=== PATIENT | female | born 2000 | race African-American/Black ===

== ENCOUNTER 2021-03-08 20:05 | Emergency (ER) | payer OTHER ==
[~2021-03-08] VITALS: Ht 170.2 cm; Wt 79.4 kg
[2021-03-08 20:52] LABS: HEMATOCRIT 39.6 % (37.0-47.0); HEMOGLOBIN 13.9 gm/dL (12.0-15.0); MCH 32.5 pg (26.0-34.0); MCHC 35.2 g/dL (28.0-37.0); MCV 92.2 fL (80.0-100.0); RBC 4.29 mil/uL (4.20-5.00); RDW 13.3 % (10.5-14.5); WBC 6.9 thou/uL (4.0-11.0)
[2021-03-08 20:59] LABS: CALCIUM 8.7 mg/dL (8.5-10.1); CREATININE 0.8 mg/dL (0.6-1.0); POTASSIUM 3.7 mmol/L (3.5-5.1)
[2021-03-08 21:05] LABS: ALBUMIN 3.9 g/dL (3.4-5.0); TOTAL BILIRUBIN 0.2 mg/dL (0.2-1.0); TOTAL PROTEIN 7.2 g/dL (6.4-8.2)
[2021-03-08 23:30] VITALS: BP 95/42
--- NOTE | 2021-03-09 07:54 | EKG ---
[place] [address] [facility] [facility] [place] [address] ELECTROCARDIOGRAM REPORT Name: GILDA PINEDO Room #: HOANG Luna#: [id number] Admission: 03/08/21 Attend Phys: Discharge: 03/08/21 Date of : 89 Report #: [id number] [facility] ED Test Date: 2021-03-08 Test Time: 20:12:31 Pat Name: GILDA PINEDO Department: Room: Gender: F Working Foreman: CHARLES : 2000 Requested By: Siobhan Willis Order Number: [id number] MD: Bebeto Dean Measurements Intervals [place] Rate: 63 P: 47 ID: [id number] QRS: 49 QRSD: 97 T: 57 QT: 384 QTc: 394 Interpretive Statements Sinus rhythm Normal tracing No previous ECG available for comparison Electronically Signed On 03-09-2021 7:54:07 [employer] by Bebeto Dean [email or web address] <ELECTRONICALLY SIGNED> By: Bebeto Dean MD, [facility] 03/09/21 0754 11 11 Bebeto Dean MD, FACC /EPI
== END 2021-03-08 23:35 | disposition home or self-care (01) ==
LOC: ER 20:05
PROVIDERS: Nurse Practitioner Family
DX: R07.89 Other chest pain (principal)